=== PATIENT | male | born 1995 | race Caucasian/White ===

== ENCOUNTER 2019-12-17 15:39 | Observation (INO) | payer OTHER ==
[~2019-12-17] VITALS: Ht 180.3 cm; Wt 137.9 kg
[2019-12-17 16:11] VITALS: BP 135/64; PULSE 121; TEMP 99
[2019-12-17] MEDS ORDERED: SYNTHROID0.175 MG PO (17:10)
[2019-12-17] MEDS ORDERED: GLUCOPHAGE500 MG/TAB PO (17:11)
[2019-12-17] MEDS ORDERED: PRINIVIL5 MG PO (17:12)
[2019-12-17] MEDS ORDERED: LIPITOR 40MG TA40 MG PO (17:12)
[2019-12-17] MEDS ORDERED: LEVEMIR100 U/ML SQ (17:13)
[2019-12-17 17:27] LABS: CALCIUM 9.2 mg/dL (8.4-10.2); CREATININE, serum 0.9 (0.66-1.25); POTASSIUM 3.8 mmol/L (3.4-5.0)
--- NOTE | 2019-12-17 18:42 | NUR ---
Pt admission, med rec, allergies, pharm completed. Pt is A&O, independent in room, on room air, tele. Pt denies any SOB, N/V/D, chest pain, numbness or tingling. Pt has 20G to RH w/ NS at 100ml/hr running. Pt using urinal to track I/O. LS cta, HRR, occasionally tachy, BS active. 1+ edema to BLE. Pulses strong bilaterally. Small rash noted under rt side chest, per pt started over the last week, seen by hospitalist. Hospitalist in to assess pt. All questions answered. No further needs expressed. Dietary called to have dinner sent up. Pt provided w/ water.
[2019-12-17 19:13] VITALS: BP 103/58; PULSE 94; TEMP 98.3
--- NOTE | 2019-12-17 22:00 | NUR ---
Received report from ARAM Park. A/Ox4. Denies any pain or discomfort. Indepedent in room. Meds adminsitered as ordered. Tele monitor in place. HR 130-140's when pt is up and moving, notified by radiotelephone operator, pt asymptomatic. IV to RH intact with fluids infusing, dressing CDI. Call light within reach. needs met.
[2019-12-17 22:28] LABS: CREATININE, serum 1.05 (0.66-1.25); POTASSIUM 3.8 mmol/L (3.4-5.0)
[2019-12-17 23:08] VITALS: BP 123/60; PULSE 89; TEMP 98
[2019-12-18 02:30] LABS: CREATININE, serum 0.84 (0.66-1.25); POTASSIUM 3.6 mmol/L (3.4-5.0)
[2019-12-18 03:32] VITALS: BP 114/62; PULSE 87; TEMP 97.7
--- NOTE | 2019-12-18 05:29 | NUR ---
Pt made no complaints. meds adminsitered as ordered. call light within reach.
[2019-12-18 06:38] LABS: CALCIUM 8.7 mg/dL (8.4-10.2); CREATININE, serum 0.73 (0.66-1.25); POTASSIUM 3.3 mmol/L (3.4-5.0)
--- NOTE | 2019-12-18 07:24 | NUR ---
Report given to ARAM Pope.
[2019-12-18 07:37] VITALS: BP 120/71; PULSE 83; TEMP 97.9
--- NOTE | 2019-12-18 09:47 | NUR ---
ARIEL and palletizer met with the patient to discuss discharge plan. The patient lives in [place] with his , Joseline (ph#[phone]), their son, and his in-laws. He reports independence with ADLs and does not have any DME. The patient's PCP is Dr. Aneesh Valladares and he receives his medications at the [facility]. He reports no difficulties obtaining his meds so far. He was recently started on insulin. The patient does not have advanced directives and he was not interested in completing them at this time. The patient plans to return home with his family upon discharge. No additional needs at this time.
[2019-12-18 10:27] LABS: CALCIUM 8.8 mg/dL (8.4-10.2); CREATININE, serum 0.76 (0.66-1.25); POTASSIUM 3.4 mmol/L (3.4-5.0)
--- NOTE | 2019-12-18 11:33 | NUR ---
First visit from the battery service technician. No needs right now.
[2019-12-18 11:43] VITALS: BP 129/66; PULSE 88; TEMP 98.7
[2019-12-18] MEDS ORDERED: NOVOLOG FLEX100 U/ML SQ (12:46)
--- NOTE | 2019-12-18 16:31 | NUR ---
PATIENT DC TO HOME @ 1515 VIA POV ACCOMPANIED BY SILICATOR. AT TIME OF DC PATIENT A/O X 4. DENIES C/O PAIN OR DISCOMFORT. PRINTED DC INSTRUCTIONS TO INCLUDE MEDICATIONS, FOLLOW UP AND REASONS TO RETURN REVIEWED WITH PATIENT. LOW DOSE SLIDING SCALE INSLULIN FORM REVIEWED WITH PATIENT. ALL QUESTIONS ANSWERED. PATIENT ABLE TO DEMONSTRATE TEACH BACK. AMBULATED OFF UNIT TO VEHICLE ACCOMPANIED BY THIS NURSE.
[2019-12-19] MEDS ORDERED: NOVOLOG 100U100 U/M1 SQ (14:12)
== END 2019-12-18 15:15 | disposition home or self-care (01) ==
LOC: MEDICAL 15:39
PROVIDERS: Hospitalist; Physician Assistant; ADMIT Internal Medicine
DX: E11.10 Type 2 diabetes mellitus with ketoacidosis without coma (principal); E87.6 Hypokalemia; E06.3 Autoimmune thyroiditis; R00.0 Tachycardia, unspecified; Z88.2 Allergy status to sulfonamides; Z88.1 Allergy status to other antibiotic agents; Z79.84 Long term (current) use of oral hypoglycemic drugs; Z79.4 Long term (current) use of insulin
CPT/HCPCS: G0378; J1815; J7030

== ENCOUNTER → 2019-12-17 | Outpatient (CLI) | payer OTHER ==
[~2019-12-17] MED LIST: GLUCOPHAGE500 MG/TAB PO; LEVEMIR100 U/ML SQ; LIPITOR 40MG TA40 MG PO; NOVOLOG 100U100 U/M1 SQ; NOVOLOG FLEX100 U/ML SQ; PRINIVIL5 MG PO; SYNTHROID0.175 MG PO
[2019-12-17 14:00] LABS: BASO # 0.2 (0.0-0.2); BASO % 1.7 % (0.0-2.0); EOS # 0.2 (0.0-0.7); EOS % 1.6 % (0-4.0); GRAN % 63.9 % (42.2-75.2); HEMATOCRIT 43.9 % (42.0-52.0); HEMOGLOBIN 15.5 g/dl (13.5-18.0); LYMPH # 2.1 (1.2-3.4); LYMPH % 21.9 % (20.0-51.0); MEAN CELL VOLUME 81 fl (80.0-100.0); MEAN CORPUSCULAR HEMOGLOBIN 29 pg (27.0-31.0); MEAN CORPUSCULAR HGB CONC 35 g/dl (33.0-37.0); MEAN PLATELET VOLUME 11.3 fl (7.4-10.4); MONO # 0.9 (0.1-0.6); MONO % 9.8 % (1.7-9.3); PLATELET COUNT 344 K/mm3 (130-400); RED BLOOD COUNT 5.41 M/mm3 (4.20-5.60); REDCELL DISTRIBUTION WIDTH-CV 13.2 % (11.5-14.5)
[2019-12-17 14:11] LABS: ACETONE,SERUM SMALL
[2019-12-17 14:14] LABS: ALANINE AMINOTRANSFERASE 27 U/L (4-49); ALBUMIN 4.5 gm/dL (3.5-5.0); ALKALINE PHOSPHATASE 113 U/L (50-136); ANION GAP 17 mmol/L (7-16); AST,SGOT 22 U/L (15-37); BILIRUBIN,TOTAL 0.7 mg/dL (0.0-1.0); BLOOD UREA NITROGEN 6 mg/dL (9-20); CALCIUM 9.3 mg/dL (8.4-10.2); CARBON DIOXIDE 17 mmol/L (22-30); CHLORIDE 99 mmol/L (98-107); CREATININE, serum 0.81 (0.66-1.25); GLUCOSE 330 mg/dL (74-106); POTASSIUM 3.2 mmol/L (3.4-5.0); SODIUM 133 mmol/L (137-145); TOTAL PROTEIN 7.6 gm/dL (6.4-8.2)
== END ==
LOC: COL.LAB 13:27
PROVIDERS: Family Medicine
DX: R82.4 Acetonuria (principal)